=== PATIENT | male | born 1970 | race Caucasian/White ===

== ENCOUNTER 2024-01-09 21:07 | Emergency (ER) | payer OTHER ==
[~2024-01-09] VITALS: Ht 165.1 cm; Wt 100.0 kg
[2024-01-09 21:25] VITALS: TEMP 98.4
[2024-01-09] MEDS ORDERED: TRAM50TA5 PO (23:54)
[2024-01-10] MEDS: TraMADol HCL 50 MG TABLET PO ONE (00:01)
[2024-01-10 00:07] VITALS: BP 135/76; PULSE 92; RESP 18
== END 2024-01-10 00:24 | disposition home or self-care (01) ==
LOC: EMS 21:12
DX: S40.011A Contusion of right shoulder, initial encounter (principal); J45.909 Unspecified asthma, uncomplicated; F17.210 Nicotine dependence, cigarettes, uncomplicated; F15.10 Other stimulant abuse, uncomplicated; Z88.6 Allergy status to analgesic agent; Y04.8XXA Assault by other bodily force, initial encounter; Y93.89 Activity, other specified; Y92.89 Other specified places as the place of occurrence of the external cause; Y99.8 Other external cause status
CPT/HCPCS: 29105; 99283